=== PATIENT | female | born 1945 | race Caucasian/White ===

== ENCOUNTER 2022-01-02 13:45 | Outpatient (RCR) | payer OTHER, SELFPAY | END 2022-01-17 13:45 | disposition home or self-care (01) | PROVIDERS: PCP Family Medicine; Visit Provider Family Medicine | DX: M54.16 Radiculopathy, lumbar region (principal); Z51.89 Encounter for other specified aftercare | CPT/HCPCS: 97110; 97140; 97162 ==

== ENCOUNTER 2022-01-14 13:27 | Emergency (ER) | payer OTHER, SELFPAY ==
[2022-01-14 13:31] VITALS: BP 159/91; PULSE 82; RESP 16; TEMP 36.4; O2SAT 97; BMI 27.9
--- NOTE | 2022-01-14 13:38 | ED_ITS ---
HPI - General Adult General Time Seen by Provider: 14:05 Date Seen: 01/14/22 Chief complaint: Unspecified Complaint, Adult Stated complaint: Possible Blood Clot Time Seen by Provider: 01/14/22 13:38 Source: patient, RN notes reviewed and old records reviewed Mode of arrival: ambulatory Limitations: no limitations History of Present Illness HPI narrative: Mariluz is a very pleasant 77-year-old female who has a history of breast cancer status post lumpectomy and radiation, recent steroid injection, history of hypertension who comes to the emergency room for concerns regarding right lower leg swelling, hypertension and hallucinations. Her daughter who is an RN presents with her and assists with history. Patient noted lump on her right lower leg this afternoon. It is associated with tenderness. She cannot recall any specific trauma and has not been experiencing any fever, chills or shortness of breath. Patient notes that she is worried about a DVT given the fact that she has been through significant medical treatment since July 2021. She has not taken any medication for the discomfort. Pressing on it increases her discomfort. She has not had DVT or blood clots in the past. Patient also notes that she has been experiencing elevated blood pressures up to 220 systolic this morning. She states that originally her primary Dr. Nayak of the [facility] had her on lisinopril and this worked very well to manage her hypertension. However, she developed a cough and she was switched to losartan which did not help and caused headache and fatigue. She is now taking Because of elevated blood pressures she had presented to urgent care 1 week ago on Sunday 01/07. She was then seen in the [address] Room on 01/08 and 01/09. Her daughter tells me that they did multiple workups and blood work was all reassuring including TSH. They did an EKG which also looked normal. They then saw Dr. Arellano on Tuesday 01/09. On Friday 01/12 patient received Kenalog injection in her right hand for a threat us. That evening and last night patient started to hallucinate. She describes seeing her dancing in the room and then noticed that he was sleeping next to her. Last night she noticed that her curtains for sealing were all covered in Lutz lights. They were so real that she tried to reach over to the curtains and realized that they were not. This morning when she woke up she noticed bright orange Ballard everywhere in her bed but when she went to touch them they were not real. She does realize that these are hallucinations. She has been significantly anxious and is currently on Zoloft and does have a small amount of Ativan at home. It does appear that the Ativan seems to help significantly. She is not paranoid and her hallucinations have been happy in nature. She denies a headache or any recent head trauma. She presented to [place] [address] this morning and all tests done were normal. She returns to the emergency room here in [place] this afternoon. At [place] [address] there was no urinalysis, head CT or COVID test done. Related Data Home Medications Medication Instructions Recorded Confirmed calcium carbonate 600 mg calcium 600 mg PO BID 10/31/21 01/14/22 (1,500 mg) tablet (Calcium) cyclobenzaprine 5 mg tablet 5 mg PO QDAY PRN 10/31/21 01/14/22 cyclosporine 0.05 % eye drops in a 1 drp ophthalmic (eye) Q12H 10/31/21 01/14/22 dropperette (Restasis) ergocalciferol (vitamin D2) 10 mcg 10 mcg PO QDAY 10/31/21 01/14/22 (400 unit) tablet gabapentin 100 mg capsule 200 mg PO .qhs 10/31/21 01/14/22 ibuprofen 800 mg tablet 800 mg PO TID PRN pain 10/31/21 01/14/22 lisinopril 20 mg tablet 20 mg PO QDAY 10/31/21 01/14/22 simvastatin 40 mg tablet 40 mg PO QPM 10/31/21 01/14/22 tramadol 50 mg tablet 50 mg PO Q6-8H PRN 10/31/21 01/14/22 Previous Rx's Medication Instructions Recorded letrozole 2.5 mg tablet (Femara) 2.5 mg PO Q24H #30 tabs 01/10/22 Allergies Allergy/AdvReac Type Severity Reaction Status Date / Time clindamycin Allergy Intermediate Rash Verified 01/14/22 13:43 rofecoxib AdvReac Unknown Uncoded 10/31/21 10:40 Review of Systems Status of ROS: Reports: 10 or more systems reviewed and unremarkable except as noted in History and below Const: Denies: fever or chills Eyes: Denies: blurry vision or blind spots ENMT: Reports: throat swelling; Denies: throat pain, neck pain or difficulty swallowing Cardio: Reports: other (Rapid heart rate occasionally); Denies: chest pain or shortness of breath with exertion Resp: Denies: shortness of breath or cough GI: Denies: abdominal pain, nausea, vomiting, diarrhea or difficulty swallowing : Denies: painful urination or urinary frequency Musculo: Reports: other (Occasional left breast pain); Denies: back pain or neck pain Integ/Breast: Reports: redness (Left breast.) Neuro: Denies: headache, weakness in extremities or lack of coordination Psych: Reports: anxiety Endo: Denies: excessive urination Allergy/Immuno: Reports: hives and throat swelling PFSH PFSH Medical History Arthritis Colon polyps History of radiation therapy HTN (hypertension) Hyperhidrosis Hyperlipidemia Irritable bowel syndrome Post-menopausal Surgical History H/O tubal ligation S/P appy Status post left breast lumpectomy (~06/01/21) Social History Smoking Status: Former smoker Do you use any of these nicotine containing products: None Second hand tobacco smoke exposure: No How often do you have a drink containing alcohol: never How often do you have six or more drinks on one occasion: Never AUDIT-C Alcohol total score: 0 Non-prescribed substance use: denies use service: No Exam Narrative: Exam Narrative: Patient is alert and oriented. Very well-spoken pleasant woman in no acute distress. EOM is full. Pupils are equal round. Examination of the retina show no flame hemorrhages. Neck is atraumatic normocephalic neck is supple without lymphadenopathy heart with a regular rate and rhythm. I did hear a approximately 5-6 P irregular run that was isolated lungs are with decreased breath sounds but clear at this time abdomen soft nontender lower extremities without a significant edema perhaps scant edema at the ankles but they are symmetrical. Patient has a approximately 3-4 cm area of firmness slightly tender to the touch on the medial aspect of heard a distal lower leg. There is no surrounding erythema this is approximately a 7 cm superior to the middle of the medial malleolus. There is no pulsating mass here. Able to move all limbs. Const: Vital Signs, click to edit/add: Vital Signs - 24 hr 01/14/22 13:31 01/14/22 15:30 01/14/22 16:00 Temperature 97.6 F Pulse Rate [Right Pulse Oximeter] 82 67 69 Respiratory Rate 16 13 47 H Blood Pressure [Ri ght Upper Arm] 159/91 H 161/88 H 140/84 H Pulse Oximetry 97 97 98 Oxygen Delivery Me thod Room Air Room Air Room Air 01/14/22 16:30 Temperature Pulse Rate [Right Pulse Oximeter] 63 Respiratory Rate 14 Blood Pressure [Ri ght Upper Arm] 135/82 Pulse Oximetry 97 Oxygen Delivery Me thod Room Air Course Course Hospital Course: At this time will order lower extremity Doppler to evaluate tender mass right lower extremity. Would also recommend placing patient on director of cardiac cath lab with serial blood pressure checks although her blood pressure here is [address] as she does have history of cancer to rule out any metastases as well as urinalysis and COVID. Reevaluation(s) Reevaluation #1: No evidence of UTI. Vital Signs Vital signs: Initial Vital Signs Temperature 97.6 F 01/14/22 13:31 Temperature Source Temporal Artery Scan 01/14/22 13:31 Pulse Rate 82 01/14/22 13:31 Respiratory Rate 16 01/14/22 13:31 Blood Pressure 159/91 H 01/14/22 13:31 Blood Pressure Mean 113 01/14/22 13:31 Blood Pressure Position Sitting 01/14/22 13:31 Pulse Oximetry 97 01/14/22 13:31 Oxygen Delivery Method 01/14/22 13:31 Vital Signs Temperature 97.6 F 01/14/22 13:31 Pulse Rate 82 01/14/22 13:31 Respiratory Rate 16 01/14/22 13:31 Blood Pressure 159/91 H 01/14/22 13:31 Pulse Oximetry 97 01/14/22 13:31 Oxygen Delivery Method 01/14/22 13:31 Temperature 97.6 F 01/14/22 13:31 Pulse Rate 63 01/14/22 16:30 Respiratory Rate 14 01/14/22 16:30 Blood Pressure 135/82 01/14/22 16:30 Pulse Oximetry 97 01/14/22 16:30 Oxygen Delivery Method 01/14/22 16:30 Medical Decision Making MDM Narrative Medical decision making narrative: 1. Right lower leg-superficial thrombophlebitis. Recommend continuing ibuprofen which she takes on a regular basis using warm packs to the leg. Recommend elevating the leg. Follow-up for worsening symptoms. No evidence of clots in the deep system. 2. Hallucinations-I am wondering if this is a combination of anxiety as well as recent steroid use. Patient is well aware that these are hallucinations. At this point they have been happy and have not been scary and counters. I do think that anxiety is playing a role here as well. I will give her a small amount of Ativan 0.5 mg p.o. t.i.d. p.r.n.. Follow-up with for ongoing symptoms. Of course for worsening symptoms return to the emergency room. 3. Blood pressure -blood pressure is now 140s 135 systolic without any interventions. I do think because this does involve some tachycardia that this is likely an adrenaline and stress response. If blood pressure continued to be a problem of low-dose beta-marianna twice daily may be appropriate. However at this time heart rate is now back into the 60s and I will not add any additional medications. Patient does have a follow-up her doctor on SaturdayJanuary 17. 4. Disposition -home. At this time patient is COVID negative, has normal vital signs, has a head CT that is negative for any acute findings and is feeling improved peer she is discharged home in the care of her daughter. Medical Records Medical records reviewed: Yes I reviewed the patient's medical records Lab Data Lab results reviewed: Yes I reviewed the patient's lab results Labs: Lab Results 01/14/22 01/14/22 Range/Units 14:17 14:35 Urine Color Yellow (Yellow) Urine Appearance Clear (Clear) Urine pH 6.0 (5.0-8.5) Ur Specific [place] 1.015 (1.000-1.030) Urine Protein Negative (Negative) Urine Glucose (UA) Negative (Negative) Urine Ketones Negative (Negative) Urine Blood Negative (Negative) Urine Nitrite Negative (Negative) Urine Bilirubin Negative (Negative) Urine Urobilinogen 0.2 (0.2-1.0) Ur Leukocyte Esterase Trace A (Negative) Urine RBC 0-2 (0-2) Urine WBC 0-2 (0-5) Urine WBC Clumps None (None) Ur Squamous Epith Cells Few (None-Few) Urine Bacteria None (None) SARS-CoV-2 (PCR) Negative SARS-CoV-2 (Negative) Influenza Type A (PCR) Negative PCR FLU A (Negative) Influenza Type B (PCR) Negative PCR FLU B (Negative) Imaging Data CT scan - head: Attestation: I have reviewed the pertinent imaging results. My impression: By my read no obvious acute abnormalities Radiologist's impression: Mild diffuse cerebral volume loss. No mass effect or midline shift. The mathis-white differentiation is maintained. No acute intracranial hemorrhage or pathologic extra-axial fluid collection. Intracranial atherosclerotic calcifications. Thinning of the ocular lenses. The calvarium is intact. Severe opacification of the left sphenoid sinus and intrasinus hyperattenuation/calcifications. The mastoid air cells are clear. IMPRESSION: 1. No acute intracranial hemorrhage or mass effect. 2. Severe opacification of the left sphenoid sinus with intrasinus hyperattenuation and calcifications potentially representing? inspissated secretions or sequelae of fungal sinus disease Chest x-ray: Attestation: I have reviewed the pertinent imaging results. My impression: No obvious infiltrates. Questionable blunting of the right costophrenic angle. Radiologist's impression: Mild atelectasis or scarring in the lower left lung. No airspace consolidation. No pleural effusion or pneumothorax. Pulmonary vasculature is unremarkable. Cardiomediastinal silhouette size is normal. Aortic atherosclerotic calcifications. Ring-like metallic objects in the anterior left chest may be surgical clips. IMPRESSION: Mild atelectasis or scarring in the left lung base. Venous US: Attestation: I have reviewed the pertinent imaging results. Radiologist's impression: Deep veins: Sonographic imaging demonstrates the right common femoral, deep femoral, superficial femoral, popliteal, posterior tibial and the contralateral right common femoral veins to be fully compressible with normal color Doppler blood flow. Superficial veins: Area of thrombus in the mid to distal greater saphenous vein) calf), approximately a 2.2 cm segment of thrombus. No popliteal cyst. IMPRESSION: 1. No sign of right deep venous thrombosis. 2. Superficial thrombus within the mid to distal tight greater saphenous vein. Discharge Plan Discharge Clinical Impression: Acute superficial venous thrombosis of right lower extremity, Hallucinations, visual, Hypertension Patient Disposition: Home, Self-Care Condition: Improved Additional Instructions: 1. You have a superficial clot in your right leg. Treat this with ibuprofen 400 mg every 8 hours. Warm packs to leg along with elevation of the leg as much as possible. You may need to take medication to protect her stomach such as Pepcid or omeprazole. Dr. Nayak will want to monitor your kidney function while using this medication. This is not the type of clot that will cause blood clots in the lungs. 2. I believe your hallucinations should improve as the steroid leaves her system. In the meantime continue on Zoloft. If Ativan seems to help you may use this medication sparingly. Prescription in our [employer] machine. 3. Continue to monitor blood pressure. However, do not do this as often as you have been doing it. I think this increases your stress which in turn increases your blood pressure. If needed a low-dose beta-marianna such as atenolol 12.5 mg at night may be indicated. 4. Follow-up with Dr Nayak for recheck as scheduled. Return to the emergency room as needed especially for the onset of new symptoms. Prescriptions: No Action tramadol 50 mg tablet 50 mg PO Q6-8H PRN Hold Instructions: did not work Label Comments: TAKE ONE TABLET BY MOUTH TWICE A DAY NEEDED FOR PAIN ibuprofen 800 mg tablet 800 mg PO TID PRN (Reason: pain) Label Comments: TAKE ONE TABLET BY MOUTH EVERY 8 HOURS NEEDED lisinopril 20 mg tablet 20 mg PO QDAY Label Comments: TAKE ONE TABLET BY MOUTH EVERY DAY simvastatin 40 mg tablet 40 mg PO QPM Label Comments: TAKE ONE TABLET BY MOUTH AT BEDTIME gabapentin 100 mg capsule 200 mg PO .qhs Label Comments: TAKE TWO CAPSULES BY MOUTH AT BEDTIME cyclobenzaprine 5 mg tablet 5 mg PO QDAY PRN cyclosporine [Restasis] 0.05 % dropperette 1 drp ophthalmic (eye) Q12H calcium carbonate [Calcium 600] 600 mg calcium (1,500 mg) tablet 600 mg PO BID ergocalciferol (vitamin D2) 10 mcg (400 unit) tablet 10 mcg PO QDAY letrozole [Femara] 2.5 mg tablet 2.5 mg PO Q24H Qty: 30 1RF Follow Up/Referrals: Taisha Nayak MD [Primary Care Provider] - Stand Alone Forms: [facility] Info Instructions
--- NOTE | 2022-01-14 14:16 | US_ITS ---
Patient: MARIAELENA RIGGS Facility:?[facility] Patient ID:?[id number] Site Patient ID:?[id number]. Site :?[id number] Study:?US-Extremity Right LEV RT-01/14/2022 3:15:38 PM Ordering Physician:?SHERYR MIMS MD Final Report: INDICATION: Leg pain and swelling. TECHNIQUE: Ultrasound venous duplex lower right extremity. Compression venous exam was performed using mathis-scale, color Doppler, and spectral Doppler analysis. COMPARISON: None. FINDINGS: Deep veins: Sonographic imaging demonstrates the right common femoral, deep femoral, superficial femoral, popliteal, posterior tibial and the contralateral right common femoral veins to be fully compressible with normal color Doppler blood flow. Superficial veins: Area of thrombus in the mid to distal greater saphenous vein) calf), approximately a 2.2 cm segment of thrombus. No popliteal cyst. IMPRESSION: 1. No sign of right deep venous thrombosis. 2. Superficial thrombus within the mid to distal tight greater saphenous vein. Findings discussed with Dr. Sherry Mims at 3:40 p.m. 01/14/2022. Dictated by Pawel Nickerson MD @ 01/14/2022 3:43:01 PM Signed by:?Pawel Nickerson MD @01/14/2022 3:43:01 PM (Electronic Signature)
--- NOTE | 2022-01-14 14:16 | CRLHL7_ITS ---
For Patients: As a result of the Century Cures Act, medical imaging exams and procedure reports are released immediately into your electronic medical record. You may view this report before your referring provider. If you have questions, please contact your health care provider. INDICATION: Hallucinations. TECHNIQUE: Noncontrast CT images acquired through the brain. COMPARISON: None. FINDINGS: Mild diffuse cerebral volume loss. No mass effect or midline shift. The mathis-white differentiation is maintained. No acute intracranial hemorrhage or pathologic extra-axial fluid collection. Intracranial atherosclerotic calcifications. Thinning of the ocular lenses. The calvarium is intact. Severe opacification of the left sphenoid sinus and intrasinus hyperattenuation/calcifications. The mastoid air cells are clear. IMPRESSION: 1. No acute intracranial hemorrhage or mass effect. 2. Severe opacification of the left sphenoid sinus with intrasinus hyperattenuation and calcifications potentially representing inspissated secretions or sequelae of fungal sinus disease. Please note that all CT scans at this facility use dose modulation, iterative reconstruction, and/or weight-based dosing when appropriate to reduce radiation dose to as low as reasonably achievable. Dictated by Klaus Davalos MD @ 01/14/2022 3:10:18 PM (Electronically Signed)
--- NOTE | 2022-01-14 14:17 | CRLHL7_ITS ---
For Patients: As a result of the Century Cures Act, medical imaging exams and procedure reports are released immediately into your electronic medical record. You may view this report before your referring provider. If you have questions, please contact your health care provider. HISTORY: Hallucinations. History of cancer. TECHNIQUE: Two-view chest. COMPARISON: None. FINDINGS: Mild atelectasis or scarring in the lower left lung. No airspace consolidation. No pleural effusion or pneumothorax. Pulmonary vasculature is unremarkable. Cardiomediastinal silhouette size is normal. Aortic atherosclerotic calcifications. Ring-like metallic objects in the anterior left chest may be surgical clips. IMPRESSION: Mild atelectasis or scarring in the left lung base. Dictated by Rainer Ochoa MD @ 01/14/2022 3:04:53 PM (Electronically Signed)
[2022-01-14 14:44] LABS: Appearance Urine Clear (Clear); Bilirubin Urine Negative (Negative); Blood Urine Negative (Negative); Color Urine Yellow (Yellow); Glucose Urine Negative (Negative); Ketones Urine Negative (Negative); Leukocyte Esterase Urine Trace (Negative); Nitrite Urine Negative (Negative); Protein Urine Negative (Negative); Specific Gravity Urine 1.015 (1.000-1.030); Urobilinogen Urine 0.2 (0.2-1.0)
[2022-01-14 14:58] LABS: RBC Urine 0-2 (0-2); Squamous Epithelial Cell Urine Few (None-Few); WBC Urine 0-2 (0-5)
[2022-01-14 15:15] LABS: PCR FLU A Negative PCR FLU A (Negative); PCR FLU B Negative PCR FLU B (Negative)
[2022-01-14 15:16] LABS: SARS PCR* Negative SARS-CoV-2 (Negative)
[2022-01-14 15:30] VITALS: BP 161/88; PULSE 67; RESP 13; O2SAT 97
[2022-01-14 16:00] VITALS: BP 140/84; PULSE 69; RESP 47; O2SAT 98
[2022-01-14 16:30] VITALS: BP 135/82; PULSE 63; RESP 14; O2SAT 97
== END 2022-01-14 16:40 | disposition home or self-care (01) ==
PROVIDERS: Emergency Provider Family Medicine; PCP Family Medicine
DX: I80.01 Phlebitis and thrombophlebitis of superficial vessels of right lower extremity (principal); I10 Essential (primary) hypertension; R44.3 Hallucinations, unspecified
CPT/HCPCS: 70450; 71046; 81001; 87631; 93971; 99284; 99285

== ENCOUNTER 2022-02-20 12:45 | Outpatient (RCR) | payer OTHER, SELFPAY | END 2022-04-29 23:59 | disposition home or self-care (01) | LOC: CCIC 12:45 | PROVIDERS: PCP Family Medicine; Visit Provider Internal Medicine Hematology & Oncology | DX: C50.912 Malignant neoplasm of unspecified site of left female breast (principal); Z17.0 Estrogen receptor positive status [ER+]; Z79.811 Long term (current) use of aromatase inhibitors | CPT/HCPCS: 99212; 99214; 99215 ==

== ENCOUNTER 2023-07-01 13:45 | Outpatient (RCR) | payer OTHER, SELFPAY | END 2023-09-05 14:59 | disposition home or self-care (01) | PROVIDERS: PCP Family Medicine; Visit Provider Family Medicine | DX: H81.11 Benign paroxysmal vertigo, right ear (principal); M54.2 Cervicalgia; M25.60 Stiffness of unspecified joint, not elsewhere classified; Z51.89 Encounter for other specified aftercare | CPT/HCPCS: 95992; 97110; 97140; 97161; 97535 ==